=== PATIENT | female | born 1985 | race Caucasian/White ===

== ENCOUNTER 2024-06-12 10:08 | Emergency (ER) | payer SELFPAY ==
[2024-06-12 10:15] VITALS: BP 121/83
--- NOTE | 2024-06-12 12:06 | ED.GENMED ---
History of Present Illness
General
Chief Complaint: Foreign Body Ingestion
Source: patient
Exam Limitations: none
Time Seen by Provider: 06/12/24 10:20
Nursing documentation reviewed up to this point in time: agreed with
History of Present Illness
History of Present Illness:
Patient is a 39-year-old female presenting with correctional officers for evaluation of possible foreign body visualized on x-ray upon intake to snf. Patient was being transported today from a [place] correctional institution to [facility]
correctional institution where an intake x-ray showed an unknown abnormality. Patient denies ingesting or placing any foreign bodies. Correctional officers unable to give any more information regarding abnormality as they did not see the image.
Patient denies any fever, nausea/vomiting, abdominal pain. No rectal pain. No abnormal vaginal bleeding or discharge.
No other complaints today.
Review of Systems
Review of Systems
Allergies reviewed?: Yes
All Other Systems: ROS reviewed and negative except as documented in HPI and ROS
Phy Exam
Physical Exam
Physical Exam:
Vitals: Patient's vital signs are stable. Afebrile
General: Patient is well appearing, no acute distress
Skin: Warm and dry, no rashes or lesions
Head: Normocephalic, atraumatic
Eyes: Sclera nonicteric. EOMs intact. No nystagmus.
Throat: Poor dentition. No visualized foreign body in oropharynx. Protecting airway
Neck: Normal ROM
Cardiac: Regular rate and rhythm, no murmurs.
Pulm: Normal respiratory effort, no wheezes, rales, rhonchi heard on exam.
Abdomen: Abdomen soft and nontender. No abdominal tenderness.
Rectal: Deferred by patient
Pelvic: Deferred by patient
Extremities: No evidence of cyanosis or edema
Neuro: AAOx3. Grossly intact.
Psychiatric: Normal affect.
Course
Orders/Labs/Results
Orders:
Orders
06/12/24 10:23
CR Abdomen - 1 View Urgent
Comment:
Reason For Exam: possible foreign body
Pelvis, 1 or 2 Views CR [CR Pelvis - 1 Or 2 Views ] Urgent
Comment:
Reason For Exam: possible foreign body
06/12/24 12:00
Obstruct Series W/PA Chest [CR Obstruct Series W/pa Chest] Urgent
Comment:
Reason For Exam: possible foreign body visualized on prior xray
Vital Signs
Initial and Last Documented VS:
Initial Vital Signs
Temp Pulse Resp BP Pulse Ox
98.1 F 67 18 121/83 99
06/12/24 10:15 06/12/24 10:15 06/12/24 10:15 06/12/24 10:15 06/12/24 10:15
Last Documented Vital Signs
Temp Pulse Resp BP Pulse Ox
98.1 F 64 18 119/63 99
06/12/24 10:15 06/12/24 13:30 06/12/24 13:30 06/12/24 13:30 06/12/24 13:30
MDM/Problems Addressed
Differential Diagnosis Includes:
Not limited to: Foreign body, constipation, etc
MDM/Problems Addressed:
39 year old female presenting from snf with possible foreign body visualized on intake xray scan. She denies ingesting or placing any foreign body. No other complaints today. Vital signs stable. Physical exam as above. No evidence of foreign body
in oropharynx or airway compromise. Patient in no respiratory distress. Abdomen soft and nontender. Skin exam reveals no foreign body. Patient refused both pelvic and rectal exam in ED.
Xray imaging of abdomen and pelvis obtained initially revealed a nonspecific linear density in abdomen. Per recommendation of radiology, patients gown was changed with repeat osbtruction series performed. Repeat xray without any foreign body or
previosuly noted linear density suggesting likely artifact. . Imaging does show moderate stool burden suggesting constipation without evidence of obbstruction which may have been misinterpreted on initial intake xray. At this point- no evidence of
foreign body. Patient medically cleared for incarceration.
Chronic conditions affecting care:
N/A
Acute Exacerbation and/or Progression of Chronic Illness:
N/A
*Radiology
Radiology exam reviewed: preliminary read by ED provider (Abdominal/pelvis xray reviewed by me- constipation, no visualized foreign body) and radiology read reviewed
*Pulse Oximetry
Patient hypoxic: no
*EKG
Interpreted by ED Provider?: NA
*Biological Lab Technician Interpretation
Rate: Biological Lab Technician- N/A
*Critical Care Note
Total Time (30-74mins, 75-104mins- exclusive of procedures): Not Applicable
ED Attending Note
-
Portions of this chart may have been created with voice recognition software.� Occasional wrong word or��sound alike� substitutions may have occurred due to the inherent limitations of voice recognition software.
Discharge Plan
Departure
Patient Disposition: Group Home
Date of Disposition: 06/12/24
Time of Disposition: 13:25
Patient with high blood pressure during this ER visit?: No
Condition: Good
Covid-19: Not Applicable
Discharge Problem:
Medical clearance for incarceration, Constipation
Instructions: Constipation, Adult ED
Referrals:
NONE,* [Family Provider] -
Activity Restrictions/Additional Instructions:
Return to the emergency department with any chest pain, shortness of breath/difficulty breathing, difficulty swallowing, abdominal pain, intractable vomiting, or any other concerns
-There was no evidence of foreign body visualized on x-ray imaging while in the emergency department. However�there was findings suggest constipation.
-As discussed that she should take MiraLAX daily. It is important stay well-hydrated. Eat high-fiber diet.
Monitor symptoms closely return to the emergency department with any acute worsening/new symptoms or any other concern
PATIENT IS MEDICALLY CLEARED FOR INCARCERATION
Interventions
Interventions:
*Risk Screen - Suicide Last Done: 06/12/24 10:15
*General Assessment Last Done: 06/12/24 10:15
*Neglect/Abuse Screening Last Done: 06/12/24 13:30
*ED- Fall Risk Assessment Last Done: 06/12/24 10:39
*ED COVID-19 Vaccine History Last Done: 06/12/24 10:39
*Nursing Disposition Last Done: 06/12/24 13:30
HJ-Zqoiea-Pdsysqzlel Assessment Last Done: 06/12/24 10:39
ED- Pulmonary Assessment Last Done: 06/12/24 10:39
Discharge Date and Time
Discharge Date/Time: 06/12/24 13:30
Print Language: AFGHAN
[2024-06-12 13:30] VITALS: BP 119/63
== END 2024-06-12 13:30 ==
LOC: EMR 10:08
PROVIDERS: EMERGENCY PHYSICIAN Emergency Medicine
DX: Z02.89 Encounter for other administrative examinations (principal); K59.00 Constipation, unspecified
CPT/HCPCS: 99283; 72170; 74018; 74022